=== PATIENT | male | born 1940 | race Caucasian/White ===

== ENCOUNTER 2019-06-26 02:29 | Observation (INO) ==
--- NOTE | 2019-06-26 02:50 | Emergency Department Note ---
Disposition Clinical Impression: Congestive heart failure Qualifiers: Heart failure type: unspecified Heart failure chronicity: acute Qualified Code(s): I50.9 - Heart failure, unspecified Disposition: Admitted As Inpatient Condition: Fair Referrals: Tabby Arenas CNP [Primary Care Provider] - Forms: ED Satisfaction Letter Time of Disposition: 05:50 SOB HPI - General Chief Complaint: ED Shortness of Breath/Dyspnea Stated Complaint: Liana Time Seen by Provider: 06/26/19 02:39 Source: patient, family Mode of arrival: ambulatory Limitations: no limitations Nursing Notes Reviewed: Yes Vital Signs Reviewed: Yes - History of Present Illness 79-year-old male without significant past medical history, no current medications, no known drug allergies presenting for 4 day history of gradually progressive and worsening shortness of breath. The patient was seen at an [facility] earlier this week and was diagnosed with allergies and sent home with a decongestant. Patient states that his dyspnea continued worsening and he was seen 2 days ago and put on doxycycline for the management of potential bronchitis. Patient states despite this he has continued to be short of breath states that he has profound orthopnea and cannot breathe while lying down and becomes exertionally dyspneic. He also notes a pleuritic chest pain but denies generalized pain. He said no abdominal pain no nausea vomiting no lightheadedness dizziness numbness or paresthesias. No other concerns or complaints at this time. Upon my initial evaluation, my general impression is that the patient is in no acute distress, he is awake, alert, oriented, engaged to conversation and answering questions appropriately. There are no overt lateralizing signs, the patient is in no acute distress; their skin appears to be normal in color, they are not pale, not cyanotic, and not diaphoretic, they are sitting up in hospital bed interacting appropriately with environment. Pt Subjective Complaint: shortness of breath, pain with inspiration Onset (ago): day(s) Associated symptoms: Reports: pain with inspiration, orthopnea Cough present: No - Related Data Home Medications Medication Instructions Recorded Confirmed BuPROPion [Wellbutrin] 75 mg PO BID 06/26/19 06/26/19 Doxycycline 100 mg PO BID 06/26/19 06/26/19 Simvastatin [Zocor] 40 mg PO HS 06/26/19 06/26/19 Allergies Allergy/AdvReac Type Severity Reaction Status Date / Time No Known Allergies Allergy Unverified 06/26/19 02:35 Review of Systems: *See History of Present Illness for more detail Constitutional: Denies: fever, chills Cardiovascular: Denies: chest pain Respiratory: Admits: dyspnea,, orthopnea denies: cough, hemoptysis Gastrointestinal: Denies: abdominal pain, nausea, vomiting, diarrhea, constipati on, hematemesis, melena, hematochezia Genitourinary: Denies: hematuria Musculoskeletal: Denies: back pain, neck pain Neurological: Denies: headache, weakness, lightheadedness/dizziness, numbness, paresthesias, difficulty with ambulation. Endocrine: Denies: fatigue All systems ED: reviewed and negative except as stated. Review of Systems: As Per HPI Past Medical History - Past Medical History Medical history: Reports: hyperlipidemia, hypertension Psychiatric history: Reports: no psych history - Social History Smoking Status: Never smoker Alcohol use: Reports: none Drug use: Reports: none Physical Exam Constitutional: No acute distress, [id number], engaged to conversation, speech is fluid, answers questions appropriately Neuro: GCS 15, no overt focal neurological deficits Head: Atraumatic, normocephalic Eyes: Pupils equal, round and reactive to light, no scleral icterus, no conjunctival injection Neck: Trachea midline without deviation. Anterior neck is supple without swelling. *Chest: Symmetric chest wall rise *Heart: Cardiac rhythm and rate are regular with S1 and S2 , no S3 or S4 appreciated, no murmurs, gallops, rubs, or clicks. *Lungs: Rhonchi noted in the lower left lobe. Otherwise Lungs are clear to auscultation bilaterally, without accessory muscle use or prolonged expiratory phase. No wheezes, or stridor appreciated. Abdomen: Abdomen is flat, soft to palpation, normal bowel sounds. No abdominal bruit auscultated. Non-distended, non-rigid, no organomegaly, no ascites appreciated. No pulsatile mass, no tenderness or guarding to palpation in all four quadrants, no rebound Extremities: Normal capillary refill without evidence of pedal edema, joint swelling or erythema. Pulses/motor/sensory intact in all 4 extremities. Psychiatric exam: Patient displays a normal affect and mood for the environment. No overt signs of hallucination. Integumentary: warm, dry, intact, normal color. No rash, cyanosis, diaphoresis, erythema, or pallor - General Limitations: no limitations General appearance: alert, in no apparent distress Course Course Narrative: ED dyspnea workup Vital Signs Temperature 97.7 F 06/26/19 02:38 Pulse Rate 69 06/26/19 02:38 Respiratory Rate 24 06/26/19 02:38 Blood Pressure 142/85 06/26/19 02:38 O2 Sat by Pulse Oximetry 93 06/26/19 02:38 Temperature 97.7 F 06/26/19 02:38 Pulse Rate 71 06/26/19 04:56 Respiratory Rate 20 06/26/19 04:56 Blood Pressure 117/58 06/26/19 04:56 O2 Sat by Pulse Oximetry 96 06/26/19 04:56 Oxygen Delivery Oxygen Delivery Nasal Cannula Shortness of Breath/Dyspnea - MDM Narrative Medical decision making narrative: Clinical examination consistent with new onset CHF exacerbation, ED physician read of chest x-ray reveals some pulmonary edema with cephalization of pulmonary vasculature, there is an elevation of the patient's BNP. These findings combined with the patient's subjective complaints of shortness of breath and orthopnea lead us to the diagnosis of new onset CHF exacerbation which will require hospital admission with cardiology consultation for further evaluation and management with likely echocardiogram for further evaluation. The patient has family at bedside verbalized their understanding and agreement this plan. We will give 40 mg of Lasix at this time for diuresis. The patient is hemodynamically stable time of admission. - Lab Data Lab results reviewed: Yes I reviewed the patient's lab results. Result diagrams: 06/26/19 02:43 06/26/19 02:43 Lab Results 06/26/19 06/26/19 06/26/19 Range/Units 02:43 02:43 02:43 WBC 7.5 (4.3-11.1) K/mcL RBC 4.80 (4.19-5.50) M/mcL Hgb 14.7 (12.9-16.9) g/dL Hct 44.4 (37.5-50.1) % MCV 92.5 (83.0-100.0) fL MCH 30.6 (28.0-33.3) pg MCHC 33.1 (31.6-35.5) g/dL RDW 13.2 (11.5-14.5) % Plt Count 130 L (140-400) K/mcL MPV 10.0 (9.4-12.4) fL Immature Gran % 0.4 (0-4) % Seg Neutrophils % 85.1 % Lymphocytes % 9.2 % Monocytes % 4.9 % Eosinophils % 0.1 % Basophils % 0.3 % Neutrophils # 6.4 (1.6-8.9) K/mcL Lymphocytes # 0.7 (0.6-4.6) K/mcL Monocytes # 0.4 (0.0-1.3) K/mcL Eosinophils # 0.0 (0.0-0.6) K/mcL Basophils # 0.0 (0.0-0.2) K/mcL D-Dimer 298 (0-500) ng/mLFEU VBG pH (7.32-7.42) pH Units VBG pCO2 (41-51) mmHg VBG pO2 (25-50) mmHg VBG HCO3 (21-27) mEq/L Sodium 137 (136-145) mEq/L Potassium 4.4 (3.5-5.1) mEq/L Chloride 105 (98-107) mEq/L Carbon Dioxide 23 (23-29) mEq/L BUN 15 (8-23) mg/dL Creatinine 1.09 (0.70-1.30) mg/dL Est GFR ( Amer) > 60 (> 60) Est GFR (Non-Af Amer) > 60 (> 60) BUN/Creatinine Ratio 14 (6-26) Glucose 135 H (70-105) mg/dL Calculated Osmolality 287 (280-300) Lactic Acid (0.5-2.2) mmol/L Calcium 9.2 (8.6-10.3) mg/dL Troponin I < 0.03 (< 0.04) ng/mL B-Natriuretic Peptide (Less than 100) pg/mL Urine Color (Yellow) Urine Clarity (Clear) Urine pH (5.0-8.0) pH Units Ur Specific [place] (1.010-1.025) Urine Protein (Neg-Trace) mg/dL Urine Glucose (UA) (Normal) mg/dL Urine Ketones (Negative) mg/dL Urine Blood (Negative) Urine Nitrite (Negative) Urine Bilirubin (Negative) Urine Urobilinogen (Normal) mg/dL Ur Leukocyte Esterase (Negative) Ur Culture Indicated? (NO) 06/26/19 06/26/19 06/26/19 Range/Units 02:43 02:54 02:57 WBC (4.3-11.1) K/mcL RBC (4.19-5.50) M/mcL Hgb (12.9-16.9) g/dL Hct (37.5-50.1) % MCV (83.0-100.0) fL MCH (28.0-33.3) pg MCHC (31.6-35.5) g/dL RDW (11.5-14.5) % Plt Count (140-400) K/mcL MPV (9.4-12.4) fL Immature Gran % (0-4) % Seg Neutrophils % % Lymphocytes % % Monocytes % % Eosinophils % % Basophils % % Neutrophils # (1.6-8.9) K/mcL Lymphocytes # (0.6-4.6) K/mcL Monocytes # (0.0-1.3) K/mcL Eosinophils # (0.0-0.6) K/mcL Basophils # (0.0-0.2) K/mcL D-Dimer (0-500) ng/mLFEU VBG pH 7.38 (7.32-7.42) pH Units VBG pCO2 41 (41-51) mmHg VBG pO2 51 H (25-50) mmHg VBG HCO3 25 (21-27) mEq/L Sodium (136-145) mEq/L Potassium (3.5-5.1) mEq/L Chloride (98-107) mEq/L Carbon Dioxide (23-29) mEq/L BUN (8-23) mg/dL Creatinine (0.70-1.30) mg/dL Est GFR ( Amer) (> 60) Est GFR (Non-Af Amer) (> 60) BUN/Creatinine Ratio (6-26) Glucose (70-105) mg/dL Calculated Osmolality (280-300) Lactic Acid (0.5-2.2) mmol/L Calcium (8.6-10.3) mg/dL Troponin I (< 0.04) ng/mL B-Natriuretic Peptide 121 H (Less than 100) pg/mL Urine Color Yellow (Yellow) Urine Clarity Clear (Clear) Urine pH 6.0 (5.0-8.0) pH Units Ur Specific [place] 1.006 L (1.010-1.025) Urine Protein Negative (Neg-Trace) mg/dL Urine Glucose (UA) Normal (Normal) mg/dL Urine Ketones Negative (Negative) mg/dL Urine Blood Negative (Negative) Urine Nitrite Negative (Negative) Urine Bilirubin Negative (Negative) Urine Urobilinogen Normal (Normal) mg/dL Ur Leukocyte Esterase Negative (Negative) Ur Culture Indicated? NO (NO) 06/26/19 Range/Units 03:20 WBC (4.3-11.1) K/mcL RBC (4.19-5.50) M/mcL Hgb (12.9-16.9) g/dL Hct (37.5-50.1) % MCV (83.0-100.0) fL MCH (28.0-33.3) pg MCHC (31.6-35.5) g/dL RDW (11.5-14.5) % Plt Count (140-400) K/mcL MPV (9.4-12.4) fL Immature Gran % (0-4) % Seg Neutrophils % % Lymphocytes % % Monocytes % % Eosinophils % % Basophils % % Neutrophils # (1.6-8.9) K/mcL Lymphocytes # (0.6-4.6) K/mcL Monocytes # (0.0-1.3) K/mcL Eosinophils # (0.0-0.6) K/mcL Basophils # (0.0-0.2) K/mcL D-Dimer (0-500) ng/mLFEU VBG pH (7.32-7.42) pH Units VBG pCO2 (41-51) mmHg VBG pO2 (25-50) mmHg VBG HCO3 (21-27) mEq/L Sodium (136-145) mEq/L Potassium (3.5-5.1) mEq/L Chloride (98-107) mEq/L Carbon Dioxide (23-29) mEq/L BUN (8-23) mg/dL Creatinine (0.70-1.30) mg/dL Est GFR ( Amer) (> 60) Est GFR (Non-Af Amer) (> 60) BUN/Creatinine Ratio (6-26) Glucose (70-105) mg/dL Calculated Osmolality (280-300) Lactic Acid 1.1 (0.5-2.2) mmol/L Calcium (8.6-10.3) mg/dL Troponin I (< 0.04) ng/mL B-Natriuretic Peptide (Less than 100) pg/mL Urine Color (Yellow) Urine Clarity (Clear) Urine pH (5.0-8.0) pH Units Ur Specific [place] (1.010-1.025) Urine Protein (Neg-Trace) mg/dL Urine Glucose (UA) (Normal) mg/dL Urine Ketones (Negative) mg/dL Urine Blood (Negative) Urine Nitrite (Negative) Urine Bilirubin (Negative) Urine Urobilinogen (Normal) mg/dL Ur Leukocyte Esterase (Negative) Ur Culture Indicated? (NO) - Radiology Data Radiology results reviewed: Yes I reviewed the patient's radiology results. Chest X-Ray 06/26/19 02:45 IMPRESSION: No acute cardiopulmonary findings. D/ / Parveen Heaton / Parveen Heaton Interpreting Provider: Parveen Heaton - EKG Data EKG attestation: Yes I reviewed and interpreted this EKG. EKG results narrative: The patients EKG shows a sinus rhythm at a rate of 70 beats per minute, DE interval of 367 milliseconds, a QRS duration of 110 milliseconds, a QT/QTc interval of 415 / 448 milliseconds respectively. There are no significant ST segment elevations, depressions, pathologic Q waves, abnormal T-wave inversions, nor any other signs of acute ischemic change. This EKG that was performed today is generally consistent in morphology with prior EKG that was performed on 05/05/2015.
[2019-06-26 02:53] LABS: Basophils % 0.3 %; Eosinophils % 0.1 %; Hematocrit 44.4 % (37.5-50.1); Hemoglobin 14.7 g/dL (12.9-16.9); Immature Granulocytes % 0.4 % (0-4); Lymphocytes # 0.7 K/mcL (0.6-4.6); Lymphocytes % 9.2 %; Mean Corpuscular HGB Conc 33.1 g/dL (31.6-35.5); Mean Corpuscular Hemoglobin 30.6 pg (28.0-33.3); Mean Corpuscular Volume 92.5 fL (83.0-100.0); Monocytes # 0.4 K/mcL (0.0-1.3); Monocytes % 4.9 %; Neutrophils # 6.4 K/mcL (1.6-8.9); Platelet Count 130 K/mcL (140-400); Red Cell Distribution Width 13.2 % (11.5-14.5); Segmented Neutrophils % 85.1 %; White Blood Count 7.5 K/mcL (4.3-11.1)
[2019-06-26 02:57] LABS: VBG HCO3 25 mEq/L (21-27); VBG PCO2 41 mmHg (41-51); VBG PH 7.38 pH Units (7.32-7.42); VBG PO2 51 mmHg (25-50)
[2019-06-26 03:03] LABS: Bilirubin,Urine Negative (Negative); Blood,Urine Negative (Negative); Clarity,Urine Clear (Clear); Color,Urine Yellow (Yellow); Glucose,Urine (UA) Normal (Normal); Ketones,Urine Negative (Negative); Leukocyte Esterase,Urine Negative (Negative); Nitrite,Urine Negative (Negative); Protein,Urine Negative (Neg-Trace); Specific Gravity,Urine 1.006 (1.010-1.025); Urobilinogen,Urine Normal (Normal)
[2019-06-26 03:17] LABS: BUN/Creatinine Ratio 14 (6-26); Blood Urea Nitrogen 15 mg/dL (8-23); Calcium 9.2 mg/dL (8.6-10.3); Carbon Dioxide 23 mEq/L (23-29); Chloride 105 mEq/L (98-107); Glucose 135 mg/dL (70-105); Osmolality,Calculated 287 (280-300); Potassium 4.4 mEq/L (3.5-5.1); Sodium 137 mEq/L (136-145); eGFR For African Americans > 60 (> 60); eGFR For Non-African Americans > 60 (> 60)
[2019-06-26 03:18] LABS: Troponin I < 0.03 ng/mL (< 0.04)
[2019-06-26] MEDS ORDERED: Furosemide 40 MG/4 ML VIAL IVP ONE (04:42)
--- NOTE | 2019-06-26 04:58 | Emergency Department Note ---
Disposition Clinical Impression: Congestive heart failure Qualifiers: Heart failure type: unspecified Heart failure chronicity: acute Qualified Code(s): I50.9 - Heart failure, unspecified Disposition: Admitted As Inpatient Condition: Fair Referrals: Tabby Arenas CNP [Primary Care Provider] - Forms: ED Satisfaction Letter Time of Disposition: 06:00 General Adult HPI - General Chief complaint: ED Shortness of Breath/Dyspnea Stated complaint: Liana Time Seen by Provider: 06/26/19 02:39 Source: patient, family Mode of arrival: ambulatory Limitations: no limitations Nursing Notes Reviewed: Yes Vital Signs Reviewed: Yes - History of Present Illness Pain Scale: 0 - Related Data Home Medications Medication Instructions Recorded Confirmed BuPROPion [Wellbutrin] 75 mg PO BID 06/26/19 06/26/19 Doxycycline 100 mg PO BID 06/26/19 06/26/19 Simvastatin [Zocor] 40 mg PO HS 06/26/19 06/26/19 Allergies Allergy/AdvReac Type Severity Reaction Status Date / Time No Known Allergies Allergy Unverified 06/26/19 02:35 Past Medical History - Past Medical History Medical history: Reports: hyperlipidemia, hypertension Psychiatric history: Reports: no psych history - Social History Smoking Status: Never smoker Alcohol use: Reports: none Drug use: Reports: none Physical Exam - General Limitations: no limitations General appearance: alert, in no apparent distress Course Vital Signs Temperature 97.7 F 06/26/19 02:38 Pulse Rate 69 06/26/19 02:38 Respiratory Rate 24 06/26/19 02:38 Blood Pressure 142/85 06/26/19 02:38 O2 Sat by Pulse Oximetry 93 06/26/19 02:38 Temperature 97.7 F 06/26/19 02:38 Pulse Rate 72 06/26/19 05:55 Respiratory Rate 19 06/26/19 05:55 Blood Pressure 131/72 06/26/19 05:55 O2 Sat by Pulse Oximetry 96 06/26/19 05:55 Oxygen Delivery Oxygen Delivery Nasal Cannula Medical Decision Making - Medical Records Medical records reviewed: Yes I reviewed the patient's medical records. - Lab Data Lab results reviewed: Yes I reviewed the patient's lab results. Result diagrams: 06/26/19 02:43 06/26/19 02:43 Lab Results 08/04/19 08/04/19 08/04/19 Range/Units 02:43 02:43 02:43 WBC 7.5 (4.3-11.1) K/mcL RBC 4.80 (4.19-5.50) M/mcL Hgb 14.7 (12.9-16.9) g/dL Hct 44.4 (37.5-50.1) % MCV 92.5 (83.0-100.0) fL MCH 30.6 (28.0-33.3) pg MCHC 33.1 (31.6-35.5) g/dL RDW 13.2 (11.5-14.5) % Plt Count 130 L (140-400) K/mcL MPV 10.0 (9.4-12.4) fL Immature Gran % 0.4 (0-4) % Seg Neutrophils % 85.1 % Lymphocytes % 9.2 % Monocytes % 4.9 % Eosinophils % 0.1 % Basophils % 0.3 % Neutrophils # 6.4 (1.6-8.9) K/mcL Lymphocytes # 0.7 (0.6-4.6) K/mcL Monocytes # 0.4 (0.0-1.3) K/mcL Eosinophils # 0.0 (0.0-0.6) K/mcL Basophils # 0.0 (0.0-0.2) K/mcL D-Dimer 298 (0-500) ng/mLFEU VBG pH (7.32-7.42) pH Units VBG pCO2 (41-51) mmHg VBG pO2 (25-50) mmHg VBG HCO3 (21-27) mEq/L Sodium 137 (136-145) mEq/L Potassium 4.4 (3.5-5.1) mEq/L Chloride 105 (98-107) mEq/L Carbon Dioxide 23 (23-29) mEq/L BUN 15 (8-23) mg/dL Creatinine 1.09 (0.70-1.30) mg/dL Est GFR ( Amer) > 60 (> 60) Est GFR (Non-Af Amer) > 60 (> 60) BUN/Creatinine Ratio 14 (6-26) Glucose 135 H (70-105) mg/dL Calculated Osmolality 287 (280-300) Lactic Acid (0.5-2.2) mmol/L Calcium 9.2 (8.6-10.3) mg/dL Troponin I < 0.03 (< 0.04) ng/mL B-Natriuretic Peptide (Less than 100) pg/mL Urine Color (Yellow) Urine Clarity (Clear) Urine pH (5.0-8.0) pH Units Ur Specific [place] (1.010-1.025) Urine Protein (Neg-Trace) mg/dL Urine Glucose (UA) (Normal) mg/dL Urine Ketones (Negative) mg/dL Urine Blood (Negative) Urine Nitrite (Negative) Urine Bilirubin (Negative) Urine Urobilinogen (Normal) mg/dL Ur Leukocyte Esterase (Negative) Ur Culture Indicated? (NO) 06/26/19 06/26/19 06/26/19 Range/Units 02:43 02:54 02:57 WBC (4.3-11.1) K/mcL RBC (4.19-5.50) M/mcL Hgb (12.9-16.9) g/dL Hct (37.5-50.1) % MCV (83.0-100.0) fL MCH (28.0-33.3) pg MCHC (31.6-35.5) g/dL RDW (11.5-14.5) % Plt Count (140-400) K/mcL MPV (9.4-12.4) fL Immature Gran % (0-4) % Seg Neutrophils % % Lymphocytes % % Monocytes % % Eosinophils % % Basophils % % Neutrophils # (1.6-8.9) K/mcL Lymphocytes # (0.6-4.6) K/mcL Monocytes # (0.0-1.3) K/mcL Eosinophils # (0.0-0.6) K/mcL Basophils # (0.0-0.2) K/mcL D-Dimer (0-500) ng/mLFEU VBG pH 7.38 (7.32-7.42) pH Units VBG pCO2 41 (41-51) mmHg VBG pO2 51 H (25-50) mmHg VBG HCO3 25 (21-27) mEq/L Sodium (136-145) mEq/L Potassium (3.5-5.1) mEq/L Chloride (98-107) mEq/L Carbon Dioxide (23-29) mEq/L BUN (8-23) mg/dL Creatinine (0.70-1.30) mg/dL Est GFR ( Amer) (> 60) Est GFR (Non-Af Amer) (> 60) BUN/Creatinine Ratio (6-26) Glucose (70-105) mg/dL Calculated Osmolality (280-300) Lactic Acid (0.5-2.2) mmol/L Calcium (8.6-10.3) mg/dL Troponin I (< 0.04) ng/mL B-Natriuretic Peptide 121 H (Less than 100) pg/mL Urine Color Yellow (Yellow) Urine Clarity Clear (Clear) Urine pH 6.0 (5.0-8.0) pH Units Ur Specific [place] 1.006 L (1.010-1.025) Urine Protein Negative (Neg-Trace) mg/dL Urine Glucose (UA) Normal (Normal) mg/dL Urine Ketones Negative (Negative) mg/dL Urine Blood Negative (Negative) Urine Nitrite Negative (Negative) Urine Bilirubin Negative (Negative) Urine Urobilinogen Normal (Normal) mg/dL Ur Leukocyte Esterase Negative (Negative) Ur Culture Indicated? NO (NO) 06/26/19 Range/Units 03:20 WBC (4.3-11.1) K/mcL RBC (4.19-5.50) M/mcL Hgb (12.9-16.9) g/dL Hct (37.5-50.1) % MCV (83.0-100.0) fL MCH (28.0-33.3) pg MCHC (31.6-35.5) g/dL RDW (11.5-14.5) % Plt Count (140-400) K/mcL MPV (9.4-12.4) fL Immature Gran % (0-4) % Seg Neutrophils % % Lymphocytes % % Monocytes % % Eosinophils % % Basophils % % Neutrophils # (1.6-8.9) K/mcL Lymphocytes # (0.6-4.6) K/mcL Monocytes # (0.0-1.3) K/mcL Eosinophils # (0.0-0.6) K/mcL Basophils # (0.0-0.2) K/mcL D-Dimer (0-500) ng/mLFEU VBG pH (7.32-7.42) pH Units VBG pCO2 (41-51) mmHg VBG pO2 (25-50) mmHg VBG HCO3 (21-27) mEq/L Sodium (136-145) mEq/L Potassium (3.5-5.1) mEq/L Chloride (98-107) mEq/L Carbon Dioxide (23-29) mEq/L BUN (8-23) mg/dL Creatinine (0.70-1.30) mg/dL Est GFR ( Amer) (> 60) Est GFR (Non-Af Amer) (> 60) BUN/Creatinine Ratio (6-26) Glucose (70-105) mg/dL Calculated Osmolality (280-300) Lactic Acid 1.1 (0.5-2.2) mmol/L Calcium (8.6-10.3) mg/dL Troponin I (< 0.04) ng/mL B-Natriuretic Peptide (Less than 100) pg/mL Urine Color (Yellow) Urine Clarity (Clear) Urine pH (5.0-8.0) pH Units Ur Specific [place] (1.010-1.025) Urine Protein (Neg-Trace) mg/dL Urine Glucose (UA) (Normal) mg/dL Urine Ketones (Negative) mg/dL Urine Blood (Negative) Urine Nitrite (Negative) Urine Bilirubin (Negative) Urine Urobilinogen (Normal) mg/dL Ur Leukocyte Esterase (Negative) Ur Culture Indicated? (NO) - Radiology Data Radiology results reviewed: Yes I reviewed the patient's radiology results. Chest X-Ray 06/26/19 02:45 IMPRESSION: No acute cardiopulmonary findings. D/ / Parveen Heaton / Parveen Heaton Interpreting Provider: Parveen Heaton - EKG Data EKG #1 EKG attestation: Yes I reviewed and interpreted this EKG. EKG results narrative: EKG shows a normal sinus rhythm with ventricular rate of 70. No significant ST segment elevation or depression. No arrhythmia or ectopy. No significant change from prior EKG dated 05/05/2015. Critical Care Time Critical Care Time: Yes Total Critical Care Time: 40 Attestation: Critical care performed: Time is exclusive of separately billable procedures. Time includes: direct patient care, patient reassessment, coordination of patient care, interpretation of data (laboratory data, radiology data, and respiratory data), review of patient's medical records, medical consultation and documentation of patient care. Procedures included in critical care time: Procedures excluded from critical care time: Attestation Statement - Attestation Attestation: I, Geovani Gracia MD, personally evaluated this patient and discussed their management with the resident physician. I reviewed the resident's note and agree with the documented findings, medical decision making, and plan of care. I reviewed the residents documentation and agree with the residents assessment and plan of care. I have personally had face to face time with the patient. I personally supervised and was present for the nuñez/critical portions of the following procedures completed by the resident: EKG interpretation. 79-year-old male presents to the emergency department with a complaint of increasing shortness of breath for the past 3-4 days. No prior history of asthma or COPD or CHF. He has no breathing problems normally and does not use any home oxygen. He states that the shortness of breath is worse with lying down. No chest pain. There has been a mild nonproductive cough. No fever. No palpitations. On examination patient is a well-developed well-nourished well-appearing elderly male in no acute distress. He is alert and oriented 3. There is no cyanosis or diaphoresis. Chest is nontender to palpation. Breath sounds are equal bilaterally with a few bibasilar rales. No wheezes. Heart regular rate and rhythm. Abdomen soft and nontender with normal bowel sounds. EKG shows a normal sinus rhythm with ventricular rate of 70. No significant ST segment elevation or depression. No arrhythmia or ectopy. No significant change from prior EKG dated 05/05/2015. Chest x-ray negative. Labs reviewed and unremarkable other than BNP mildly elevated at 121. Patient received Lasix 40 mg IV. The hospitalist, Dr. Ty, was consulted and accepted admission of the patient.
[2019-06-26] MEDS ORDERED: Naloxone 0.4 MG/ML INJ IVP PRN (09:08)
--- NOTE | 2019-06-26 09:09 | Internal Med History&Physical ---
Date of Encounter: 06/26/19 Time of Encounter: 09:38 Internal Medicine - H&P: HPI History of present illness: Mr. High is a 79 year old male with history of hypertension and hyperlipidemia presented to ED for worsening dyspnea and persisting cough. Symptoms started 5 days ago with sinus congestion and rhinorrhea. He was diagnosed with allergies and sent home with doxycycline and decongestant. He denies chest pain, n/v, palpitations, fevers/chills, numbness/tingling. He states he lays down flat without issue. He denies PND, denies extremity edema. No drastic changes in diet. He has no recent history of long travel or lower extremity tenderness or swelling. He states his shortness of breath becomes significantly worse with coughing which is the main trigger for respiratory dis tress. In the ED labs were relatively unremarkable outside of a BNP borderline elevated at 121. Initial troponin was negative and an EKG was unremarkable. He had a VBG showing pO2 elevated at 51 likely from supplemental oxygen otherwise was normal. A d-dimer was within normal limits. He was placed on 2 L O2 via NC. Patient currently in no acute distress. His daughter gave him a breathing treatment at home and he states he had relief from treatment. Past Med Surg Social Fam HX - Past Medical History Medical history: hyperlipidemia, hypertension Psychiatric history: no psych history - Past Surgical History Surgical History: other - Social History Smoking Status: Never smoker Smokeless Tobacco Status: No Alcohol use: none Drug use: none Internal Medicine - H&P: Meds BuPROPion [Wellbutrin] 75 mg PO BID 06/26/19 [History] Doxycycline 100 mg PO BID 06/26/19 [History] Simvastatin [Zocor] 40 mg PO HS 06/26/19 [History] Allergy/AdvReac Type Severity Reaction Status Date / Time No Known Allergies Allergy Unverified 06/26/19 02:35 All Systems PM: A 10-system review of systems was performed and is negative for pertinent findings except as documented above in the HPI. - Constitutional Constitutional: no chills, no fever(s), no night sweats, no weight gain - EENT Eyes: no change in vision, no discharge, no pain, no photophobia Ears: no ear discharge, no ear pain, no tinnitus Nose, mouth and throat: nasal discharge, sinus pressure, no dysphagia, no neck pain, no sore throat - Cardiovascular Cardiovascular ROS IM: dyspnea, no chest pain, no diaphoresis, no edema, no lightheadedness, no orthopnea, no palpitations, no syncope - Respiratory Respiratory: cough, no dyspnea (non-productive), no wheezing, no excessive phlegm production - Gastrointestinal Gastrointestinal: no abdominal pain, no diarrhea, no hematemesis, no hematochezia, no melena, no nausea, no vomiting - Musculoskeletal Musculoskeletal ROS IM: no numbness, no tingling - Integumentary Integumentary IM: no rash, no unusual bruising - Neurological Neurological ROS: no confusion, no convulsions, no focal weakness, no numbness, no tingling, no tremor(s) - Hematologic/Lymphatic Hematologic/Lymphatic: no easy bruising - Allergic/Immunologic Allergic/Immunologic: no tongue swelling, no throat swelling, no uticaria, no lip swelling - Constitutional Vitals: Temp Pulse Resp BP Pulse Ox 98.1 F 64 16 131/68 93 06/26/19 08:23 06/26/19 08:23 06/26/19 08:23 06/26/19 08:23 06/26/19 08:23 General appearance: Present: A&O X 3, no acute distress Exam: . - Head Head exam: Present: atraumatic, normocephalic - Eye Eye exam: Present: PERRL, conjuntiva pink, sclera anicteric Pupils: Present: PERRL - ENT ENT exam: Present: mucous membranes moist Additional comments: Nares with boggy mucosa with clear rhinorrhea present. - Expanded ENT Exam Mouth exam: Present: moist. Absent: muffled voice, tongue elevation, tongue hypertrophy Throat exam: Present: normal inspection - Neck Neck exam general surgery: Present: full ROM, supple, trachea midline. Absent: lymphadenopathy, nuchal rigidity - Respiratory Respiratory exam: Present: CTAB. Absent: accessory muscle use, rales, rhonchi, wheezes - Cardiovascular Cardiovascular exam: Present: RRR, +S1, +S2. Absent: diastolic murmur, gallop, rubs, systolic murmur - GI/Abdominal GI/Abdominal exam: Present: normal bowel sounds, soft, no peritoneal signs. Absent: distended, tenderness - Extremities Exam Extremities exam: Present: warm, radial pulses palpable and symmetrical. Absent: calf tenderness, cyanotic, pedal edema - Neurological Exam Neurological exam: Present: CN II-XII intact, oriented X3, no focal deficits. Absent: pronater drift, facial droop, speech deficit - Skin Skin exam: Present: dry, intact Internal Med - H&P Results - Labs CBC & Chem 7: 06/26/19 02:43 06/26/19 02:43 Labs: Short CBC 06/26/19 Range/Units 02:43 WBC 7.5 (4.3-11.1) K/mcL Hgb 14.7 (12.9-16.9) g/dL Hct 44.4 (37.5-50.1) % Plt Count 130 L (140-400) K/mcL Neutrophils # 6.4 (1.6-8.9) K/mcL BMP 06/26/19 02:43 Sodium 137 Potassium 4.4 Chloride 105 Carbon Dioxide 23 BUN 15 Creatinine 1.09 Glucose 135 H Calcium 9.2 Cardiac Enzymes 06/26/19 Range/Units 02:43 Troponin I < 0.03 (< 0.04) ng/mL Urine 06/26/19 Range/Units 02:57 Urine Color Yellow (Yellow) Urine Clarity Clear (Clear) Urine pH 6.0 (5.0-8.0) pH Units Ur Specific [place] 1.006 L (1.010-1.025) Urine Protein Negative (Neg-Trace) mg/dL Urine Glucose (UA) Normal (Normal) mg/dL - ABG Interpretation ABG results: 06/26/19 02:54 VBG pH 7.38 VBG pCO2 41 VBG pO2 51 H VBG HCO3 25 - Impressions ITS Impressions Chest X-Ray 06/26/19 02:45 IMPRESSION: No acute cardiopulmonary findings. D/ / Parveen Heaton / Parveen Heaton Interpreting Provider: Parveen Heaton - Assessment and Plan (1) Dyspnea Current Visit: Yes Status: Acute Assessment and plan: Symptoms are heavily associated with cough. He does not complain of orthopnea. A chest x-ray showed no acute process and BNP was mildly elevated at 121. Unsure if this is an early development of CHF or other etiology. Other etiologies include respiratory infection. D-dimer was negative making PE unlikely. Initial troponin was negative. Patient afebrile with a dry cough. He states he had Duo Neb treatment at home helped his symptoms significantly. Rhinorrhea may be contributing to cough with post-nasal drip. - Wean oxygen, unsure if patient is truly hypoxic. - Duo Neb treatment as patient did have relief from it prior to presenting to ED. - Flonase - Respiratory infection panel - Echocardiogram - If symptoms do not improve with treatment listed by later today, will continue IV Lasix, for now will monitor without giving. Qualifiers: Dyspnea type: unspecified Qualified Code(s): R06.00 - Dyspnea, unspecified (2) Hypertension Current Visit: Yes Status: Acute Assessment and plan: No home medications listed Qualifiers: Hypertension type: essential hypertension Qualified Code(s): I10 - Essential (primary) hypertension (3) Hyperlipidemia Current Visit: Yes Status: Acute Assessment and plan: Zocor Qualifiers: Hyperlipidemia type: unspecified Qualified Code(s): E78.5 - Hyperlipidemia, unspecified (4) DVT prophylaxis Current Visit: Yes Status: Acute Assessment and plan: Lovenox SQ 30 mg daily - Time Spent With Patient Total time spent is greater than 50% in coordination of care (as documented) at patient's floor/unit and/or counseling patient:
[2019-06-26] MEDS ORDERED: predniSONE 20 MG TABLET PO ONE (09:40)
[2019-06-26] MEDS: Ipratropium/Albuterol Neb 3 ML IH SCH ×3 (10:04→15:37)
[2019-06-26 15:53] VITALS: BP 115/63
[2019-06-26 17:02] LABS: Adenovirus Not Detected (Not Detect); Bordetella Pertussis Not Detected (Not Detect); Chlamydophila pneumoniae Not Detected (Not Detect); Coronavirus 229E Not Detected (Not Detect); Coronavirus HKU1 Not Detected (Not Detect); Coronavirus NL63 Not Detected (Not Detect); Coronavirus OC43 Not Detected (Not Detect); Human Metapneumovirus Not Detected (Not Detect); Human Rhinovirus/Enterovirus Not Detected (Not Detect); Influenza A Subtype 2009 H1 Not Detected (Not Detect); Influenza A Untypeable Not Detected (Not Detect); Influenza B Not Detected (Not Detect); Mycoplasma pneumoniae Not Detected (Not Detect); Parainfluenza Virus 1 Not Detected (Not Detect); Parainfluenza Virus 2 Not Detected (Not Detect); Parainfluenza Virus 3 Not Detected (Not Detect); Parainfluenza Virus 4 Not Detected (Not Detect); Respiratory Syncytial Virus Not Detected (Not Detect)
--- NOTE | 2019-06-26 18:08 | Discharge Summary ---
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 He had no focal neuro defecits and patient neuro exam was benign. 2) Discussed with patient using allergy medicine for at least 30 days uninterrupted. Orders not resulted at time of discharge: Pending orders 06/26/19 05:33 Culture,Blood [BC] Stat Date of Encounter: 06/26/19 Time of Encounter: 18:11 - Discharge Diagnosis (1) Dyspnea Priority: Primary Status: Acute Qualifiers: Dyspnea type: unspecified Qualified Code(s): R06.00 - Dyspnea, unspecified (2) Hypertension Priority: Secondary Status: Acute Qualifiers: Hypertension type: essential hypertension Qualified Code(s): I10 - Essential (primary) hypertension (3) Hyperlipidemia Priority: Secondary Status: Acute Qualifiers: Hyperlipidemia type: unspecified Qualified Code(s): E78.5 - Hyperlipidemia, unspecified (4) DVT prophylaxis Priority: Secondary Status: Acute Hospital course: Mr. High is a 79 year old male with history of hypertension and hyperlipidemia presented to ED for worsening dyspnea and persisting cough. Symptoms started 5 days ago with sinus congestion and rhinorrhea. He was diagnosed with allergies and sent home with doxycycline and decongestant. He denies chest pain, n/v, palpitations, fevers/chills, numbness/tingling. He states he lays down flat without issue, though family has noted at times he does have trouble laying flat. He denies PND, denies extremity edema. No drastic changes in diet. He has no recent history of long travel or lower extremity tenderness or swelling. He states his shortness of breath becomes significantly worse with coughing which is the main trigger for respiratory distress. In the ED labs were relatively unremarkable outside of a BNP borderline elevated at 121. Initial troponin was negative and an EKG was unremarkable. He had a VBG showing pO2 elevated at 51 likely from supplemental oxygen otherwise was normal. A d-dimer was within normal limits. He was placed on 2 L O2 via NC but did not have any documented hypoxic episodes. In the ED, there was concern for early CHF and so IV Lasix was given and Cardiology was consulted. An echocardiogram was done and unremarkable. Procalcitonin was negative suggestive against bacterial infection. He received Prednisone, Duo Neb treatments, Flonase. Patient was given a 6 minute walk test and his oxygen was 99% on room air. Cardiology reviewed chart and discussed with me this is less likely cardiac in nature and so no consultation was needed. Based on his presentation this is likely secondary to post-nasal drip related to allergies or viral respiratory tract infection. There was a request by family friend that is a physician to obtain a CT soft tissue neck. This was negative for any neck abnormalities but did incidentally reveal dense atherosclerotic calcification in distal aspect of left MCA. He has no acute neurological findings and patient is okay with discussion with primary care if further testing like a CTA study is needed. - Time Spent with Patient Total time spent providing and/or coordinating discharge services: - Discharge Medications Prescriptions: New Aspirin [Adult Aspirin] 81 mg PO DAILY #30 tablet. Loratadine [Claritin] 10 mg PO DAILY #30 capsule PredniSONE [Deltasone] 40 mg PO DAILY #8 tablet Fluticasone Propionate Nasal [Flonase] 50 mcg NS DAILY #1 bottle Guaifenesin [Mucinex] 1,200 mg PO BID #14 tbbp.12hr Continued Simvastatin [Zocor] 40 mg PO HS BuPROPion [Wellbutrin] 75 mg PO BID Losartan [Cozaar] 25 mg PO DAILY Discontinued Doxycycline 100 mg PO BID Home Medications: Aspirin [Adult Aspirin] 81 mg PO DAILY #30 tablet. 06/26/19 [Rx] BuPROPion [Wellbutrin] 75 mg PO BID 06/26/19 [History] Fluticasone Propionate Nasal [Flonase] 50 mcg NS DAILY #1 bottle 06/26/19 [Rx] Guaifenesin [Mucinex] 1,200 mg PO BID #14 tbbp.12hr 06/26/19 [Rx] Loratadine [Claritin] 10 mg PO DAILY #30 capsule 06/26/19 [Rx] Losartan [Cozaar] 25 mg PO DAILY 06/26/19 [History] PredniSONE [Deltasone] 40 mg PO DAILY #8 tablet 06/26/19 [Rx] Simvastatin [Zocor] 40 mg PO HS 06/26/19 [History] Allergies/Adverse Reactions: Allergy/AdvReac Type Severity Reaction Status Date / Time No Known Allergies Allergy Unverified 06/26/19 02:35 Date of admission: 06/26/19 06:09 Primary care physician: Tabby Arenas CNP Discharging clinician: Nicky Erickson - Constitutional Vitals: Temp Pulse Resp BP Pulse Ox 97.4 F L 79 16 115/63 94 06/26/19 15:52 06/26/19 15:52 06/26/19 15:52 06/26/19 15:52 06/26/19 17:25 General appearance: Present: A&O X 3, no acute distress Exam: General appearance: Present: A&O X 3, no acute distress - Head Head exam: Present: atraumatic, normocephalic - Eye Eye exam: Present: PERRL, conjuntiva pink, sclera anicteric Pupils: Present: PERRL - ENT ENT exam: Present: mucous membranes moist Additional comments: Nares with boggy mucosa with clear rhinorrhea - Expanded ENT Exam Mouth exam: Present: moist. Absent: muffled voice, tongue elevation, tongue hypertrophy Throat exam: Present: normal inspection - Neck Neck exam general surgery: Present: full ROM, supple, trachea midline. Absent: lymphadenopathy, nuchal rigidity - Respiratory Respiratory exam: Present: CTAB. Absent: accessory muscle use, rales, rhonchi, wheezes - Cardiovascular Cardiovascular exam: Present: RRR, +S1, +S2. Absent: diastolic murmur, gallop, rubs, systolic murmur - GI/Abdominal GI/Abdominal exam: Present: normal bowel sounds, soft, no peritoneal signs. Absent: distended, tenderness - Extremities Exam Extremities exam: Present: warm, radial pulses palpable and symmetrical. Absent: calf tenderness, cyanotic, pedal edema - Neurological Exam Neurological exam: Present: CN II-XII intact, oriented X3, no focal deficits. Absent: pronater drift, facial droop, speech deficit - Skin Skin exam: Present: dry, intact - Patient Status Disposition: Home, Self-Care Condition: Fair Functional capacity at discharge: independent ambulation Overall status at discharge: patient is back to baseline - Discharge Instructions Follow Up With: Tabby Arenas CNP [Primary Care Provider] - - Diet and Activity Activity: increase activity as tolerated Diet: advance to your usual diet
[2019-06-26] MEDS ORDERED: Doxycycline 100 MG CAPSULE PO SCH (21:00)
[2019-06-27] MEDS ORDERED: *HR* Enoxaparin 30 MG/0.3 ML SYRINGE SQ SCH (06:00)
[2019-06-27] MEDS ORDERED: Aspirin 81 MG TAB.CHEW PO SCH (09:00)
[2019-06-27] MEDS ORDERED: Fluticasone Propionate Nasal 50 MCG/SPRAY BOTTLE NS SCH (09:40)
--- NOTE | 2019-06-27 14:08 | Electrocardiograph Report ---
[address] [address] Test Date: 2019-06-26 Pat Name: Twin High Department: [id number] Room: 3B65 Gender: M Timber Feller: : 1940 Requested By: Trung Amador Order Number: [id number] Reading MD: Romain Garcia Measurements Intervals [place] Rate: 70 P: 57 [place]: 367 QRS: -40 QRSD: 110 T: 26 QT: 415 QTc: 448 Interpretive Statements Sinus rhythm Prolonged [place] interval Left axis deviation Electronically Signed On 06-27-2019 14:07:16 EDT by Romain Garcia
== END 2019-06-26 18:25 | disposition home or self-care (01) ==
LOC: EMEROOARM 02:29 → 3BNU 02:29
PROVIDERS: ADMIT Internal Medicine; ATTEND Internal Medicine